=== PATIENT | male | born 1985 | race Caucasian/White ===

== ENCOUNTER 2017-01-21 15:45 | Emergency (ER) | payer OTHER ==
--- NOTE | ~2017-01-21 | CR63 ---
[facility], [place]. [facility] A Service of [facility] RADIOLOGY TEXT RESULTS PATIENT: JOS REED LOCATION: SED : [birth year] UNIT #: [id number] AGE: [address]: JULIÁN BALLARD SEX: M ORDER DR: [id number] [place] [id number] MR#: [id number] Acc #: [id number] NAME: JOS REED : 1985 SEX: M STUDY DATE/TIME: 01/21/2017 14:51 UNIT: SED ROOM: STUDY DESCRIPTION: CR Chest 2 View Attending Physician: Julián Ballard Ordering Physician: Iglesia Muir M.D. Primary Care Physician: Primary Care Physician No MEDICAL IMAGING REPORT This report is preliminary unless electronic signature is present. EXAM 2 view chest HISTORY 31-year-old male, right sided chest pain, rib pain after coughing episode yesterday. COMPARISON Portable chest 04/07/2014 FINDINGS PA and lateral examination of the chest upright shows a good expansion of the parenchyma with a normal distribution of the pulmonary vascularity. There is no indication of congestion, effusion, infiltrate, tumor, or nodular density. The pleural reflections and diaphragmatic contours are normal. The cardiac silhouette and mediastinal anatomy is within normal limits. IMPRESSION Normal chest. Dictated by... Yue Baker M.D. THIS IS AN ELECTRONICALLY VERIFIED REPORT Yue Baker M.D. at 01/22/2017 10:05 AM TAYE/juan r [facility] A Service of [facility] RADIOLOGY TEXT RESULTS PATIENT: JOS REED LOCATION: SED : [birth year] UNIT #: [id number] AGE: [address]: JULIÁN BALLARD SEX: M ORDER DR: TD: 01/22/2017 07:24 JOB #: [id number] MEDICAL IMAGING REPORT Page 1 of 1
[~2017-01-21 15:45] MED LIST: ACYCLOVIR10 GM PO; ANUSOL-HC21 GM PR; FLEXERIL10 MG PO; KEFLEX125 MG/5 M PO; LORTAB 10-5001 EACH PO; ORUDIS75 M1 DOB; VIBRAMYCIN100 M1 PO
== END 2017-01-21 16:30 | disposition home or self-care (01) ==
LOC: SED 15:45
DX: M94.0 Chondrocostal junction syndrome [Tietze] (principal); F17.200 Nicotine dependence, unspecified, uncomplicated; Z98.890 Other specified postprocedural states; Z88.1 Allergy status to other antibiotic agents
CPT/HCPCS: 71020; 94640; 96372; 99283; J1885